=== PATIENT | male | born 1995 | race Caucasian/White ===

== ENCOUNTER 2025-02-20 15:10 | Emergency (ER) | payer OTHER, SELFPAY ==
[2025-02-20 15:10] VITALS: BP 139/92; PULSE 66; RESP 18; TEMP 36.8; O2SAT 97
[2025-02-20] MEDS: TETANUS,DIPHTHERIA,AC PERTUSSIS ADULT 0.5 ML (ADACEL) IM (15:31)
[2025-02-20] MEDS: LIDOCAINE 1% LOCAL INJ 10 ML VIAL INFILTRATE (15:31)
--- NOTE | 2025-02-20 15:45 | ED.UPPEXIN ---
HPI - Extremity Injury (Upper) General Chief Complaint: Extremity Injury, Upper Stated Complaint: laceration Time Seen by Provider: 02/20/25 15:20 Source: patient and family Mode of arrival: ambulatory History of Present Illness HPI narrative: this is a 29-year-old male with no significant past medical history presents today with a laceration to the anterior surface of his right finger distal approximately 2cm in length with no other injuries no numbness or tingling has good range of motion currently no bleeding. MD complaint: injury to: right Onset (ago): hour(s) Other Extremity Injury: Right: fingers ( index finger laceration) Other injuries: none Handedness: right Place: home Severity: mild Severity scale (1-10): 3 Relieving factors: immobilization Associated symptoms: denies other symptoms Related Data Allergies Allergy/AdvReac Type Severity Reaction Status Date / Time No Known Allergies Allergy Verified 02/20/25 15:25 Review of Systems Review of Systems: All systems reviewed & are unremarkable except as noted in HPI and below Exam Const: General: healthy appearing, no acute distress and alert Neck: Neck: normal visual inspection Chest: Chest palpation & inspection: normal inspection of the chest Skin: Wounds: wounds noted Other: 2Cm mildly gaping laceration anterior surface of his right index finger Neuro: General: patient oriented x3 and moves all extremities Psych: Mental Status: mental status grossly normal Course Course Emergency Course: laceration repaired patient was updated with his tetanus. Vital Signs Vital signs: Vital Signs Temperature 36.8 C 02/20/25 15:10 Pulse Rate 66 02/20/25 15:10 Respiratory Rate 18 02/20/25 15:10 Blood Pressure 139/92 H 02/20/25 15:10 Pulse Oximetry 97 02/20/25 15:10 Oxygen Delivery Room Air 02/20/25 15:10 Temperature 36.8 C 02/20/25 15:10 Pulse Rate 66 02/20/25 15:10 Respiratory Rate 18 02/20/25 15:10 Blood Pressure 139/92 H 02/20/25 15:10 Pulse Oximetry 97 02/20/25 15:10 Oxygen Delivery Room Air 02/20/25 15:10 Procedures Laceration Laceration 1: Date: 02/20/25 Time: 15:47 Site: hand Side (If applicable): right Size (cm): 2 Description: linear Depth: simple, single layer Local Anesthetic: lidocaine 1% Amount of anesthesia used (mL): 6 Pre-repair: wound explored, irrigated and irrigated extensively ====== Skin Level ====== Skin layer closed with: nylon Size (cm): 4-0 Number of sutures: 5 Technique: simple, interrupted ====== Subcutaneous Layer ====== ====== Muscle Layer ====== ====== Tendon Layer ====== Critical Care Time Critical Care Time Critical Care Time: No Discharge Plan Discharge Clinical Impression: Laceration Patient Disposition: Home Condition: Stable Instructions: Antibiotic Form, Laceration (ED) Additional Instructions: advised patient follow with primary to have sutures removed in 8 days. Patient Language: Irish Follow-up/Referrals: [facility] [Primary Care Provider, Medical] Time of Disposition: 15:49
[2025-02-20 16:05] VITALS: BP 132/89; PULSE 80; RESP 16; O2SAT 97
== END 2025-02-20 16:05 | disposition home or self-care (01) ==
PROVIDERS: Emergency Provider Emergency Medicine
DX: S61.210A Laceration without foreign body of right index finger without damage to nail, initial encounter (principal); W45.8XXA Other foreign body or object entering through skin, initial encounter; Z23 Encounter for immunization
CPT/HCPCS: 12001; 90471; 90715; 99282; J2003